=== PATIENT | male | born 1955 | race Caucasian/White ===

== ENCOUNTER 2021-08-21 13:17 | Emergency (ER) | payer OTHER, SELFPAY ==
[2021-08-21] VITALS (23 sets, daily range): BP systolic 117–167; BP diastolic 66–90; PULSE 57–78; RESP 18–24; TEMP 36.6; O2SAT 93–98; BMI 30.8
--- NOTE | 2021-08-21 13:40 | DI.RAD.S_ITS ---
PROCEDURE: XR CHEST 1V INDICATIONS: chest pain TECHNIQUE: One view of the chest was acquired. COMPARISON: None. FINDINGS: Surgical changes and devices: None. Lungs and pleura: Lungs are clear. No pleural effusions or pneumothorax. Mediastinum: Mediastinal contours appear normal. Heart size is normal. Bones and chest wall: No suspicious bony lesions. Overlying soft tissues appear unremarkable. IMPRESSION: No acute cardiopulmonary pathology. Dictated by: Keven Michaud M.D. on 08/21/2021 at 13:58 Approved by: Keven Michaud M.D. on 08/21/2021 at 13:58
--- NOTE | 2021-08-21 13:40 | ED.CHESTPAIN ---
HPI - Chest Pain <Zenon Menon PA-C - Last Filed: 08/21/21 17:28> General Chief Complaint: Chest Pain Stated Complaint: Upper Chest/Back/Arm Pain, Heart Burn Time Seen by Provider: 08/21/21 13:19 Source: patient and family Mode of arrival: Ambulatory Limitations: no limitations History of Present Illness HPI narrative: Patient is a 65-year-old male who presents to the ED complaining of pain in the right scapular margin that radiates into his anterior chest. He states that he started having the symptoms about a week ago and has been come progressively worse pain does come and go he saw his PCP today and due to the nature of the chest pain the PCP recommended the patient be evaluated in the ED for further cardiac rule out. Patient denies any increased pain with motion of his neck he denies any paresthesia or paralysis no reported cough congestion. No recent trauma or fall. Related Data Home Medications Medication Instructions Recorded Confirmed testosterone (AndroGel) 1 packet TRANSDERMAL QAM 10/12/17 08/21/21 atorvastatin 20 mg tablet 40 mg PO DAILY tab 07/23/20 08/21/21 fluoxetine 20 mg tablet 20 mg PO DAILY 07/23/20 08/21/21 lisinopril 10 mg tablet 10 mg PO DAILY 07/23/20 08/21/21 omeprazole 20 mg tablet,delayed 20 mg PO DAILY PRN 07/23/20 08/21/21 release sildenafil 100 mg tablet 100 mg PO DAILY PRN 07/23/20 08/21/21 Allergies Allergy/AdvReac Type Severity Reaction Status Date / Time No Known Drug Allergies Allergy Verified 08/21/21 13:37 Review of Systems <Zenon Menon PA-C - Last Filed: 08/21/21 17:28> Review of Systems ROS Unobtainable: All systems reviewed & are unremarkable except as noted in HPI and below Constitutional Constitutional: Denies chills, Denies fatigue, Denies fever(s), Denies frequent falls, Denies lethargy and Denies weakness Eyes Eyes: Denies change in vision, Denies eye discharge, Denies irritation and Denies loss of vision ENT Ears, Nose, Mouth, and Throat: Denies change in voice, Denies dizziness, Denies neck pain, Denies sore throat and Denies throat swelling Cardiovascular Cardiovascular: Reports chest pain, Denies irregular heart rhythm, Denies lightheadedness, Denies palpitations, Denies dyspnea, Denies dyspnea on exertion and Denies orthopnea Respiratory Respiratory: Denies cough, Denies dyspnea, Denies dyspnea on exertion and Denies wheezing Gastrointestinal Gastrointestinal: Denies abdominal pain, Denies change in bowel habits, Denies diarrhea, Denies nausea and Denies vomiting Genitourinary Genitourinary: Denies hematuria, Denies flank pain, Denies urinary incontinence and Denies urinary urgency Musculoskeletal Musculoskeletal: Denies back pain, Denies muscle weakness, Denies neck pain, Denies numbness and Denies tingling Integumentary/Breasts Skin/Breast: Denies pruritus, Denies erythema, Denies rash and Denies wounds Neurologic Neurologic: Denies behavioral changes, Denies confusion, Denies dizziness, Denies frequent falls, Denies loss of vision, Denies numbness, Denies tingling and Denies weakness Psychiatric Psychiatric: Denies anxiety, Denies behavioral changes, Denies confusion, Denies depression, Denies homicidal ideation and Denies suicidal ideation Endocrine Endocrine: Denies fatigue, Denies flushing and Denies palpitations Hematologic/Lymphatic Hematologic/Lymphatic: Denies easy bruising Allergic/Immunologic Allergic/Immunologic: Denies urticaria, Denies throat swelling and Denies wheezing Patient History <Zenon Menon PA-C - Last Filed: 08/21/21 17:28> Medical History GERD (gastroesophageal reflux disease) History of snoring Hyperlipidemia Hypertension Hypogonadism male Insomnia due to medical condition Obstructive sleep apnea, adult Family History Family/Other Dementia Alcohol abuse Father Hypertension Heart disease Dementia Mother Anxiety Family/Other Loud snoring Sleep apnea Hypertension Heart disease Social History Smoking Status: Never smoker Smoking Status: Never smoker alcohol intake frequency: a few times a week Substance Use Type: marijuana Exam <Zenon Menon PA-C - Last Filed: 08/21/21 17:28> Initial Vital Signs Initial Vital Signs: Vital Signs Temperature 98 F 08/21/21 13:19 Pulse Rate 78 08/21/21 13:19 Respiratory Rate 18 08/21/21 13:19 Blood Pressure 167/90 H 08/21/21 13:19 Pulse Oximetry 98 08/21/21 13:19 Const General: cooperative, healthy appearing, comfortable and well developed Nutritional Appearance: average body habitus [facility] Head: normal to inspection, normocephalic and atraumatic Ears: hearing grossly normal bilaterally and external ears normal Nose: external nose normal and nares normal Face and sinus: normal facial exam and sinuses nontender Eyes General: appearance normal, both eyes and all related structures Pupils: PERRL Chest Chest: normal inspection of the chest and normal palpation of entire chest wall Resp Effort & Inspection: normal respiratory effort and able to speak in complete sentences Auscultation: clear to auscultation bilaterally Back/Spine/Pelvis Cervical Spine: cervical ROM normal and cervical spinal tenderness Thoracic/Lumbar Spine: thoracic and lumbar spine normal to inspection and thoraco-lumbar ROM normal Skin General: no rashes or lesions noted <Fracisco Hess DO - Last Filed: 08/23/21 07:05> Initial Vital Signs Initial Vital Signs: Vital Signs Temperature 98 F 08/21/21 13:19 Pulse Rate 78 08/21/21 13:19 Respiratory Rate 18 08/21/21 13:19 Blood Pressure 167/90 H 08/21/21 13:19 Pulse Oximetry 98 08/21/21 13:19 Course <Zenon Menon PA-C - Last Filed: 08/21/21 17:28> Orders Ordered: Discontinued Medications Aspirin (Aspirin 81 Mg Chew Tab) 324 mg PO NOW ONE Stop: 08/21/21 13:41 Last Admin: 08/21/21 13:45 Dose: 324 mg Documented by: IVANA Heparin Sodium (Porcine) (Heparin 5,000 Unit/Ml Vial) 5,000 unit IV NOW ONE Stop: 08/21/21 16:29 Last Admin: 08/21/21 16:32 Dose: 5,000 unit Documented by: KAY Sodium Chloride (Normal Saline 0.9%) 1,000 mls @ 150 mls/hr IV CONT YNES Last Infusion: 08/21/21 14:34 Dose: 0 mls/hr Documented by: Admin: 08/21/21 14:34 Dose: 150 mls/hr Documented by: IVANA Sodium Chloride (Normal Saline 0.9%) 1,000 mls @ 1,000 mls/hr IV BOLUS ONE Stop: 08/21/21 15:31 Last Infusion: 08/21/21 15:45 Dose: 0 mls/hr Documented by: Admin: 08/21/21 14:35 Dose: 1,000 mls/hr Documented by: IVANA Heparin Sodium/Dextrose (Heparin Drip) 25,000 unit in 500 mls @ 20 mls/hr IV CONT YNES; Protocol Last Titration: 08/21/21 17:35 Dose: 0 units/hr, 0 mls/hr Documented by: Admin: 08/21/21 16:33 Dose: 1,000 units/hr, 20 mls/hr Documented by: KAY Nitroglycerin (Nitroglycerin 0.4 Mg Sl Tab) 0.4 mg SL [id number] PRN PRN Reason: Chest Pain Last Admin: 08/21/21 16:14 Dose: 0.4 mg Documented by: Admin: 08/21/21 14:47 Dose: 0.4 mg Documented by: Admin: 08/21/21 14:34 Dose: 0.4 mg Documented by: IVANA Nitroglycerin (Nitroglycerin Oint 1 Inch/Gm Oint...G.) 1 inch TOP NOW ONE Stop: 08/21/21 16:19 Last Admin: 08/21/21 16:32 Dose: 1 inch Documented by: KAY Reevaluation(s) Reevaluation #1: I spoke with patient about positive troponin and EKG changes that OB consult to Cardiology he was agreeable. His chest pain was minimal at that time it had been relieved with 2 nitro sublingual. Consultations Consultation #1: Spoke with certified genetic counselor on-call who advised that patient should be transferred to [facility] for further evaluation and admission. They recommended anticoagulation would be a heparin a transportation arrangements will be made. Vital Signs Vital signs: Vital Signs - 8 hr 08/21/21 13:19 08/21/21 13:31 08/21/21 14:00 Temperature 98 F Pulse Rate 78 73 64 Respiratory Rate 18 18 Blood Pressure 167/90 H 150/83 H 123/74 Pulse Oximetry 98 97 96 08/21/21 14:30 08/21/21 14:40 08/21/21 14:46 Temperature Pulse Rate 66 65 65 Respiratory Rate 24 21 24 Blood Pressure 129/81 117/67 129/86 Pulse Oximetry 96 95 93 08/21/21 14:50 08/21/21 14:55 08/21/21 15:00 Temperature Pulse Rate 61 64 60 Respiratory Rate 20 22 Blood Pressure 122/68 122/68 122/66 Pulse Oximetry 93 93 08/21/21 15:05 08/21/21 15:10 08/21/21 15:15 Temperature Pulse Rate 64 57 L 67 Respiratory Rate 20 23 20 Blood Pressure 126/71 123/71 119/70 Pulse Oximetry 95 96 96 08/21/21 15:30 08/21/21 15:45 08/21/21 16:00 Temperature Pulse Rate 62 61 60 Respiratory Rate 20 22 21 Blood Pressure 123/72 122/73 125/74 Pulse Oximetry 97 98 97 08/21/21 16:14 08/21/21 16:15 08/21/21 16:21 Temperature Pulse Rate 62 61 65 Respiratory Rate 20 24 20 Blood Pressure 135/78 134/81 125/71 Pulse Oximetry 97 97 94 08/21/21 16:30 Temperature Pulse Rate 57 L Respiratory Rate 20 Blood Pressure 125/73 Pulse Oximetry 94 <Fracisco Hess, DO - Last Filed: 08/23/21 07:05> Orders Ordered: Discontinued Medications Aspirin (Aspirin 81 Mg Chew Tab) 324 mg PO NOW ONE Stop: 08/21/21 13:41 Last Admin: 08/21/21 13:45 Dose: 324 mg Documented by: IVANA Heparin Sodium (Porcine) (Heparin 5,000 Unit/Ml Vial) 5,000 unit IV NOW ONE Stop: 08/21/21 16:29 Last Admin: 08/21/21 16:32 Dose: 5,000 unit Documented by: KAY Sodium Chloride (Normal Saline 0.9%) 1,000 mls @ 150 mls/hr IV CONT YNES Last Infusion: 08/21/21 14:34 Dose: 0 mls/hr Documented by: Admin: 08/21/21 14:34 Dose: 150 mls/hr Documented by: IVANA Sodium Chloride (Normal Saline 0.9%) 1,000 mls @ 1,000 mls/hr IV BOLUS ONE Stop: 08/21/21 15:31 Last Infusion: 08/21/21 15:45 Dose: 0 mls/hr Documented by: Admin: 08/21/21 14:35 Dose: 1,000 mls/hr Documented by: IVANA Heparin Sodium/Dextrose (Heparin Drip) 25,000 unit in 500 mls @ 20 mls/hr IV CONT YNES; Protocol Last Titration: 08/21/21 17:35 Dose: 0 units/hr, 0 mls/hr Documented by: Admin: 08/21/21 16:33 Dose: 1,000 units/hr, 20 mls/hr Documented by: KAY Nitroglycerin (Nitroglycerin 0.4 Mg Sl Tab) 0.4 mg SL [id number] PRN PRN Reason: Chest Pain Last Admin: 08/21/21 16:14 Dose: 0.4 mg Documented by: Admin: 08/21/21 14:47 Dose: 0.4 mg Documented by: Admin: 08/21/21 14:34 Dose: 0.4 mg Documented by: IVANA Nitroglycerin (Nitroglycerin Oint 1 Inch/Gm Oint...G.) 1 inch TOP NOW ONE Stop: 08/21/21 16:19 Last Admin: 08/21/21 16:32 Dose: 1 inch Documented by: KAY Vital Signs Vital signs: Vital Signs - 8 hr 08/21/21 13:19 08/21/21 13:31 08/21/21 14:00 Temperature 98 F Pulse Rate 78 73 64 Respiratory Rate 18 18 Blood Pressure 167/90 H 150/83 H 123/74 Pulse Oximetry 98 97 96 08/21/21 14:30 08/21/21 14:40 08/21/21 14:46 Temperature Pulse Rate 66 65 65 Respiratory Rate 24 21 24 Blood Pressure 129/81 117/67 129/86 Pulse Oximetry 96 95 93 08/21/21 14:50 08/21/21 14:55 08/21/21 15:00 Temperature Pulse Rate 61 64 60 Respiratory Rate 20 22 Blood Pressure 122/68 122/68 122/66 Pulse Oximetry 93 93 08/21/21 15:05 08/21/21 15:10 08/21/21 15:15 Temperature Pulse Rate 64 57 L 67 Respiratory Rate 20 23 20 Blood Pressure 126/71 123/71 119/70 Pulse Oximetry 95 96 96 08/21/21 15:30 08/21/21 15:45 08/21/21 16:00 Temperature Pulse Rate 62 61 60 Respiratory Rate 20 22 21 Blood Pressure 123/72 122/73 125/74 Pulse Oximetry 97 98 97 08/21/21 16:14 08/21/21 16:15 08/21/21 16:21 Temperature Pulse Rate 62 61 65 Respiratory Rate 20 24 20 Blood Pressure 135/78 134/81 125/71 Pulse Oximetry 97 97 94 08/21/21 16:30 Temperature Pulse Rate 57 L Respiratory Rate 20 Blood Pressure 125/73 Pulse Oximetry 94 MDM - Chest Pain <Zenon Menon PA-C - Last Filed: 08/21/21 17:28> Differential Diagnosis Differential diagnosis: Likely st elevation myocardial infarction Lab Data Result diagrams: 08/21/21 13:30 08/21/21 13:30 Labs: Lab Results 08/21/21 08/21/21 08/21/21 Range/Units 13:30 13:30 13:30 WBC 11.9 H (4.5-11.0) X10^3/uL RBC 6.00 H (4.5-5.9) X10^6/uL Hgb 17.7 H (13.5-17.5) g/dL Hct 52.3 (41-53) % MCV 87.2 (80-100) fL MCH 29.5 (26-34) PG MCHC 33.8 (30-36) % RDW 13.3 (11.6-14.8) % Plt Count 271 (150-400) X10^3/uL Neut % (Auto) 79.0 H (50-75) % Lymph % (Auto) 12.7 L (25-40) % [place] % (Auto) 6.7 (3-14) % Eos % (Auto) 1.0 L (2-4) % Baso % (Auto) 0.6 (0-2) % Neut # (Auto) 9400 H (7773-4135) /uL Lymph # (Auto) 1500 (4178-9906) /uL [place] # (Auto) 800 (0-900) /uL Eos # (Auto) 100 (0-450) /uL Baso # (Auto) 100 (0-100) /uL APTT 37 H (26.4-36.2) SECONDS Sodium 139 (137-145) mmol/L Potassium 3.9 (3.4-5.1) mmol/L Chloride 98 (98-107) mmol/L Carbon Dioxide 32 (22-32) mmol/L BUN 21 H (9-20) mg/dL Creatinine 1.37 H (0.66-1.25) mg/dL Estimated GFR 52.3 L (>60) mL/min BUN/Creatinine Ratio 15.3 (6-22) Glucose 144 H (80-110) mg/dL Calcium 10.1 (8.4-10.2) mg/dL Total Bilirubin 1.1 (0.2-1.3) mg/dL AST 48 (17-59) IU/L ALT 42 (<50) IU/L Alkaline Phosphatase 46 (38-126) U/L Total Creatine Kinase 128 (55-170) U/L CK-MB (CK-2) 2.07 (<2.37) ng/mL CK-MB (CK-2) Rel Index 1.6 (1.5-5.0) % Troponin I 2.290 H* (0.01-0.034) ng/mL Total Protein 8.3 H (6.3-8.2) g/dL Albumin 4.7 (3.5-5.0) g/dL Globulin 3.6 (1.7-4.1) g/dL Albumin/Globulin Ratio 1.3 (1.0-2.8) Lipase 71 (23-300) U/L SARS-CoV-2 (PCR) (Negative) 08/21/21 08/21/21 Range/Units 15:55 16:45 WBC (4.5-11.0) X10^3/uL RBC (4.5-5.9) X10^6/uL Hgb (13.5-17.5) g/dL Hct (41-53) % MCV (80-100) fL MCH (26-34) PG MCHC (30-36) % RDW (11.6-14.8) % Plt Count (150-400) X10^3/uL Neut % (Auto) (50-75) % Lymph % (Auto) (25-40) % [place] % (Auto) (3-14) % Eos % (Auto) (2-4) % Baso % (Auto) (0-2) % Neut # (Auto) (1764-9345) /uL Lymph # (Auto) (2971-1775) /uL [place] # (Auto) (0-900) /uL Eos # (Auto) (0-450) /uL Baso # (Auto) (0-100) /uL APTT (26.4-36.2) SECONDS Sodium (137-145) mmol/L Potassium (3.4-5.1) mmol/L Chloride (98-107) mmol/L Carbon Dioxide (22-32) mmol/L BUN (9-20) mg/dL Creatinine (0.66-1.25) mg/dL Estimated GFR (>60) mL/min BUN/Creatinine Ratio (6-22) Glucose (80-110) mg/dL Calcium (8.4-10.2) mg/dL Total Bilirubin (0.2-1.3) mg/dL AST (17-59) IU/L ALT (<50) IU/L Alkaline Phosphatase (38-126) U/L Total Creatine Kinase 112 (55-170) U/L CK-MB (CK-2) 1.77 (<2.37) ng/mL CK-MB (CK-2) Rel Index 1.6 (1.5-5.0) % Troponin I 2.730 H* (0.01-0.034) ng/mL Total Protein (6.3-8.2) g/dL Albumin (3.5-5.0) g/dL Globulin (1.7-4.1) g/dL Albumin/Globulin Ratio (1.0-2.8) Lipase (23-300) U/L SARS-CoV-2 (PCR) Negative (Negative) ECG Data Interpretation: EKG demonstrates hyperacute T-waves V2 V3. Sinus bradycardia MDM Narrative Medical decision making narrative: Patient was evaluated today for nonspecific scapular pain that radiated into his chest. Lab work shows a elevated troponin EKG showed some hyperacute T-waves and as result patient will be evaluated by Cardiology and transferred to [facility]. Patient was started on heparin drip with a heparin bolus and vitals have remained stable responded well to nitro for his pain and nitro paste 1 in was applied. Patient was transferred to [facility] via EMS without any further concern. <Fraciscolizandro Hess, DO - Last Filed: 08/23/21 07:05> Lab Data Labs: Lab Results 08/21/21 08/21/21 08/21/21 Range/Units 13:30 13:30 13:30 WBC 11.9 H (4.5-11.0) X10^3/uL RBC 6.00 H (4.5-5.9) X10^6/uL Hgb 17.7 H (13.5-17.5) g/dL Hct 52.3 (41-53) % MCV 87.2 (80-100) fL MCH 29.5 (26-34) PG MCHC 33.8 (30-36) % RDW 13.3 (11.6-14.8) % Plt Count 271 (150-400) X10^3/uL Neut % (Auto) 79.0 H (50-75) % Lymph % (Auto) 12.7 L (25-40) % [place] % (Auto) 6.7 (3-14) % Eos % (Auto) 1.0 L (2-4) % Baso % (Auto) 0.6 (0-2) % Neut # (Auto) 9400 H (7218-9781) /uL Lymph # (Auto) 1500 (9013-4859) /uL [place] # (Auto) 800 (0-900) /uL Eos # (Auto) 100 (0-450) /uL Baso # (Auto) 100 (0-100) /uL APTT 37 H (26.4-36.2) SECONDS Sodium 139 (137-145) mmol/L Potassium 3.9 (3.4-5.1) mmol/L Chloride 98 (98-107) mmol/L Carbon Dioxide 32 (22-32) mmol/L BUN 21 H (9-20) mg/dL Creatinine 1.37 H (0.66-1.25) mg/dL Estimated GFR 52.3 L (>60) mL/min BUN/Creatinine Ratio 15.3 (6-22) Glucose 144 H (80-110) mg/dL Calcium 10.1 (8.4-10.2) mg/dL Total Bilirubin 1.1 (0.2-1.3) mg/dL AST 48 (17-59) IU/L ALT 42 (<50) IU/L Alkaline Phosphatase 46 (38-126) U/L Total Creatine Kinase 128 (55-170) U/L CK-MB (CK-2) 2.07 (<2.37) ng/mL CK-MB (CK-2) Rel Index 1.6 (1.5-5.0) % Troponin I 2.290 H* (0.01-0.034) ng/mL Total Protein 8.3 H (6.3-8.2) g/dL Albumin 4.7 (3.5-5.0) g/dL Globulin 3.6 (1.7-4.1) g/dL Albumin/Globulin Ratio 1.3 (1.0-2.8) Lipase 71 (23-300) U/L SARS-CoV-2 (PCR) (Negative) 08/21/21 08/21/21 Range/Units 15:55 16:45 WBC (4.5-11.0) X10^3/uL RBC (4.5-5.9) X10^6/uL Hgb (13.5-17.5) g/dL Hct (41-53) % MCV (80-100) fL MCH (26-34) PG MCHC (30-36) % RDW (11.6-14.8) % Plt Count (150-400) X10^3/uL Neut % (Auto) (50-75) % Lymph % (Auto) (25-40) % [place] % (Auto) (3-14) % Eos % (Auto) (2-4) % Baso % (Auto) (0-2) % Neut # (Auto) (1532-6182) /uL Lymph # (Auto) (5869-7206) /uL [place] # (Auto) (0-900) /uL Eos # (Auto) (0-450) /uL Baso # (Auto) (0-100) /uL APTT (26.4-36.2) SECONDS Sodium (137-145) mmol/L Potassium (3.4-5.1) mmol/L Chloride (98-107) mmol/L Carbon Dioxide (22-32) mmol/L BUN (9-20) mg/dL Creatinine (0.66-1.25) mg/dL Estimated GFR (>60) mL/min BUN/Creatinine Ratio (6-22) Glucose (80-110) mg/dL Calcium (8.4-10.2) mg/dL Total Bilirubin (0.2-1.3) mg/dL AST (17-59) IU/L ALT (<50) IU/L Alkaline Phosphatase (38-126) U/L Total Creatine Kinase 112 (55-170) U/L CK-MB (CK-2) 1.77 (<2.37) ng/mL CK-MB (CK-2) Rel Index 1.6 (1.5-5.0) % Troponin I 2.730 H* (0.01-0.034) ng/mL Total Protein (6.3-8.2) g/dL Albumin (3.5-5.0) g/dL Globulin (1.7-4.1) g/dL Albumin/Globulin Ratio (1.0-2.8) Lipase (23-300) U/L SARS-CoV-2 (PCR) Negative (Negative) Discharge Plan Departure Patient Disposition: [facility] Clinical Impression: Chest pain, ST elevation myocardial infarction (STEMI) Prescriptions: No Action testosterone [AndroGel] 1 % (25 mg/2.5gram) gel in packet 1 packet Transdermal QAM 0RF atorvastatin 20 mg tablet 40 mg PO DAILY 0RF lisinopril 10 mg tablet 10 mg PO DAILY 0RF fluoxetine 20 mg tablet 20 mg PO DAILY 0RF sildenafil 100 mg tablet 100 mg PO DAILY PRN (Reason: Erectile Dysfunction) 0RF Rx Instructions: administer 30 minutes to 4 hours before activity omeprazole 20 mg tablet,delayed release (DR/EC) 20 mg PO DAILY PRN (Reason: Indigestion) 0RF <Fracisco Hess DO - Last Filed: 08/23/21 07:05> Cosign ED Attending Cosignature Attestation: I was immediately available in the department for consultation. This documentation has been reviewed and I agree with assessment and plan. Supervised by Fracisco Hess DO
[2021-08-21] MEDS: ASPIRIN 81 MG CHEW TAB 324 MG PO (13:45)
[2021-08-21 14:10] LABS: Alanine Aminotransferase 42 IU/L (<50); Albumin 4.7 g/dL (3.5-5.0); Albumin Globulin Ratio 1.3 (1.0-2.8); Alkaline Phosphatase 46 U/L (38-126); Aspartate Aminotransferase 48 IU/L (17-59); BUN Creatinine Ratio 15.3 (6-22); Bilirubin Total 1.1 mg/dL (0.2-1.3); Blood Urea Nitrogen 21 mg/dL (9-20); Calcium 10.1 mg/dL (8.4-10.2); Carbon Dioxide 32 mmol/L (22-32); Chloride 98 mmol/L (98-107); Creatine Kinase 128 U/L (55-170); Estimated Glomerular Filt Rate 52.3 mL/min (>60); Globulin 3.6 g/dL (1.7-4.1); Glucose 144 mg/dL (80-110); HEMOLYSIS 27 (0-50); Lipase 71 U/L (23-300); Potassium 3.9 mmol/L (3.4-5.1); Sodium 139 mmol/L (137-145); Total Protein 8.3 g/dL (6.3-8.2)
[2021-08-21 14:14] LABS: Add Manual Diff / Slide Review NO; Basophils Absolute Auto 100 /uL (0-100); Basophils Percent Auto 0.6 % (0-2); Eosinophils Absolute Auto 100 /uL (0-450); Hematocrit 52.3 % (41-53); Hemoglobin 17.7 g/dL (13.5-17.5); Lymphocytes Absolute Auto 1500 /uL (1100-4500); Lymphocytes Percent Auto 12.7 % (25-40); Mean Corpuscular HGB Conc 33.8 % (30-36); Mean Corpuscular Hemoglobin 29.5 PG (26-34); Mean Corpuscular Volume 87.2 fL (80-100); Monocytes Absolute Auto 800 /uL (0-900); Monocytes Percent Auto 6.7 % (3-14); Neutrophils Absolute Auto 9400 /uL (1500-7000); Platelet Count 271 X10^3/uL (150-400); Red Cell Distribution Width 13.3 % (11.6-14.8); White Blood Cell Count 11.9 X10^3/uL (4.5-11.0)
[2021-08-21 14:25] LABS: CKMB % Relative Index 1.6 % (1.5-5.0); Creatine Kinase MB 2.07 ng/mL (<2.37)
[2021-08-21] MEDS: NITROGLYCERIN 0.4 MG SL TAB SL ×3 (14:34→16:14)
[2021-08-21] MEDS: SODIUM CHLORIDE 0.9% 1,000 ML 150 ML IV (14:34)
[2021-08-21] MEDS: SODIUM CHLORIDE 0.9% 1,000 ML 1000 ML IV (14:35)
--- NOTE | 2021-08-21 14:57 | PC.NURSE ---
CP/back pain gone after nitro x 2
[2021-08-21 16:13] LABS: Creatine Kinase 112 U/L (55-170)
[2021-08-21 16:28] LABS: CKMB % Relative Index 1.6 % (1.5-5.0); Creatine Kinase MB 1.77 ng/mL (<2.37)
[2021-08-21 16:30] LABS: PTT Partial Thromboplastin Tim 37 SECONDS (26.4-36.2)
[2021-08-21] MEDS: HEPARIN 5,000 UNIT/ML VIAL 5000 UNIT IV (16:32)
[2021-08-21] MEDS: NITROGLYCERIN OINT 1 INCH/GM OINT...G. TOP (16:32)
[2021-08-21] MEDS: HEPARIN DRIP 25,000 UNIT/500 ML IV.SOLN 20 UNIT IV (16:33)
--- NOTE | 2021-08-21 16:44 | PC.NURSE ---
Heparin bolus and drip double verified with Sofi LYLES.
[2021-08-21 17:14] LABS: COVID19 -Nasal RAPID Negative (Negative)
== END 2021-08-21 17:38 | disposition short-term general hospital (02) ==
PROVIDERS: Emergency Provider Physician Assistant
DX: I21.3 ST elevation (STEMI) myocardial infarction of unspecified site (principal); I10 Essential (primary) hypertension; Z20.822 Contact with and (suspected) exposure to COVID-19
CPT/HCPCS: 36415; 71045; 80053; 82550; 82553; 83690; 84484; 85025; 85730; 87635; 93005; 93010; 99285; C9803; J1644

== ENCOUNTER → 2022-09-28 12:16 | Outpatient (CLI) | payer MEDICARE, SELFPAY ==
--- NOTE | 2022-09-28 | DI.ECHO.S_ITS ---
[facility] +---------+ Hospital +---------+ : : [address] : : : : [id number] : : : : Phone: [phone] Echocardiogram Report + + :Name: CHASE MISHRA Study Date: 09/28/2022 Height: 66.5 in: :[facility] ReadingLocation: Weight: 180 lb : : Gender: Male BSA: 1.9 m2 : :: 1955 Age: 66 yrs BP: 124/69 mmHg: :Reason For Study: OLD MYOCARDIAL EFFUSION : :Ordering Physician: DENISE, : :MABEL Performed By: Teena Hummel : :Referring: MABEL BLUM : + + Interpretation Summary Limited Echo: 1) Normal left ventricular thickness, size, and systolic function (EF 60-65%). 2) The apical anterolateral wall and the apical inferolateral wall appear to have subtle hypokinesis. 3) Upper normal right ventricular size and function. 4) Compared to the Echo done 08/22/2021, LVEF has improved from 45-50% to 60- 65% on this study. Procedure: Images were not obtained from all of the standard acoustic windows due to the limited scope of the study. The study quality was technically adequate. Comparison is made with the echocardiogram of 08/22/2021. Left Ventricle: The left ventricle is normal in size and wall thickness. The ejection fraction is estimated to be 60-65%. The apical anterolateral wall and the apical inferolateral wall appear to have subtle hypokinesis. Right Ventricle: The right ventricle is at the upper limits of normal in size. The right ventricular systolic function is normal. Great Vessels: The IVC is of normal diameter and collapses greater than 50% with a sniff. This suggests a low right atrial pressure of 3 mm Hg. Pericardium/ Pleura There is no pericardial effusion. There is no pleural effusion. MMode/2D Measurements & Calculations LVIDd: 5.0 cm IVC diam: 1.8 cm LVIDs: 3.4 cm FS: 30.6 % EPSS: 0.34 cm IVSd: 0.76 cm LVPWd: 0.82 cm LV rodrigez. diameter/BSA (cm/m^2): 2.6 LV sys. diameter/BSA (cm/m^2): 1.8 Reading Physician:05:48 PM
== END ==
PROVIDERS: Referring Provider Internal Medicine Cardiovascular Disease; Visit Provider Internal Medicine Cardiovascular Disease
DX: I25.10 Atherosclerotic heart disease of native coronary artery without angina pectoris (principal); I25.2 Old myocardial infarction; Z95.5 Presence of coronary angioplasty implant and graft
CPT/HCPCS: 93307